=== PATIENT | female | born 1955 | race Caucasian/White ===

== ENCOUNTER 2021-09-12 11:36 | Emergency (ER) | payer BC, SELFPAY ==
--- NOTE | ~2021-09-12 | NM_ITS ---
EXAMINATION: NM pulmonary perfusion DATE: 09/12/2021 15:49 INDICATION: Right chest pain. TECHNIQUE: 5.2 mCi Tc-99m MAA was administered intravenously for perfusion images. Scintigraphic marivel ges of the chest were obtained. COMPARISON: Chest 2 views 09/12/2021 FINDINGS: Perfusion images show no defects. IMPRESSION: 1. Pulmonary embolism absent. Normal perfusion. Reviewed, dictated and finalized at location A. CIATE PROFESSOR OF GEOGRAPHY
--- NOTE | ~2021-09-12 | CT_ITS ---
EXAMINATION: CT abdomen pelvis w con DATE: 09/12/2021 15:24 INDICATION: Abdominal pain TECHNIQUE: Computed tomography (CT) of the abdomen and pelvis was performed with 100 mL Omnipaque-350 intravenous contrast. Automated exposure control and iterative reconstruction technique were employe d. The dose-length product was 387.39 mGy-cm. COMPARISON: None FINDINGS: Lung bases are clear. Heart size is normal. No pericardial or pleural effusion. Small sliding-type hi atal hernia. Cholecystectomy clips at the gallbladder fossa. Diffuse hepatic steatosis with more foca l fat at the ligamentum teres. Spleen, pancreas, bilateral adrenal glands and kidneys are normal. The appendix is not visualized. No pericecal inflammatory change to suggest acute appendicitis. There ar e fluid-filled loops of small bowel as well as fluid throughout the majority the colon consistent wit h diarrhea. No abnormal bowel wall thickening or obstruction. Bladder is normal. The uterus is not id entified and has likely been surgically resected. Postoperative changes in the lumbar and lower thora cic spine with partial vertebroplasty at L3 and vertebral plasties at the remaining levels from L1 th rough L5. Anterior spinal fusion with bone graft cages at L3-L4 through L5-S1 and with anterior plate and screw fixation at L4-L5. Posterior spinal fusion with bilateral vertical julio and pedicle screws extending from T10 through S1 along with bilateral iliac screws. IMPRESSION: 1. Fluid throughout the large and small bowel consistent with nonspecific diarrhea. 2. Small sliding-type hiatal hernia. 3. Diffuse hepatic steatosis. Reviewed, dictated and finalized at location A. EL [employer] ADVISOR IMPRESSION: 1. Fluid throughout the large and small bowel consistent with nonspecific diarr hea. 2. Small sliding-type hiatal hernia. 3. Diffuse hepatic steatosis.
--- NOTE | ~2021-09-12 | XR_ITS ---
EXAMINATION: XR chest 2V DATE: 09/12/2021 15:47 INDICATION: Right upper quadrant abdominal pain. TECHNIQUE: Frontal and lateral views of the chest were obtained. COMPARISON: CT abdomen and pelvis 09/12/2021 FINDINGS: A calcified left lung nodule is consistent with old granulomatous disease. There is no pneu monia, pleural effusion, or pneumothorax. The heart size is normal. Surgical clips in the right upper quadrant are likely from cholecystectomy. There are changes of posterior fusion procedure in thoraco lumbar spine and anterior fusion procedure in lumbar spine. There is a right shoulder arthroplasty. IMPRESSION: 1. No acute cardiopulmonary disease. Reviewed, dictated and finalized at location A. RVISOR ASSEMBLY
[2021-09-12 11:52] VITALS: BP 130/93; PULSE 77; RESP 18; TEMP 36.1; O2SAT 100
[2021-09-12 12:30] LABS: Add Urine Microscopic? YES; Appearance Urine Cloudy (Clear); Bacteria Urine Trace /hpf; Bilirubin Urine Negative (Negative); Color Urine Yellow (Yellow); Glucose Urine UA Negative (Negative); Hyaline Casts Urine 30-49 /lpf; Ketones Urine Negative (Negative); Leukocyte Esterase Ur Trace LEU/UL (Negative); Mucus Urine Rare /lpf; Nitrate Urine Negative (Negative); Protein Urine 2+ mg/dL (Negative); Specific Grav Ur 1.021 (1.001-1.035); Squamous Epithelial Cell Urine Occasional /hpf (Few); Urobilinogen Urine Negative mg/dL (<2.0)
[2021-09-12 12:32] LABS: Blood Urine Negative (Negative)
[2021-09-12 12:33] LABS: Basophils Percent Auto 0.1 % (0.2-1.2); Hematocrit 34.6 % (37.0-47.0); Hemoglobin 11.8 g/dL (12.0-15.0); Immature Granulocyte Absolute 0.13 K/mm3 (0.00-0.031); Immature Granulocyte Percent A 0.8 % (0-0.5); Lymphocytes Absolute Auto 4.64 K/mm3 (0.9-3.2); Mean Corpuscular HGB Conc 34.1 g/dl (32-36); Mean Platelet Volume 9.4 fl (7.4-10.4); Monocytes Absolute Auto 1.3 K/mm3 (0.1-0.6); Neutrophils Absolute Auto 10.5 K/mm3 (1.3-6.7); Neutrophils Percent Auto 63.1 % (45.5-73.1); Platelet Count Result 377 k/mm3 (150-375); Red Blood Count 3.93 M/mm3 (4.2-5.4); Red Cell Distribution Width 12.8 % (11.5-14.5); White Blood Count 16.6 K/mm3 (4.5-10.0)
[2021-09-12 12:47] LABS: Alanine Aminotransferase 17 U/L (4-35); Albumin Level 4.6 g/dL (3.5-5.1); Alkaline Phosphatase 94 U/L (38-126); Anion Gap 9 mmol/L (8-16); Aspartate Amino Transferase 21 U/L (14-36); Bilirubin,Total 0.4 mg/dL (0.2-1.3); Blood Urea Nitrogen 28 mg/dL (7-17); Carbon Dioxide 28 mmol/L (22-30); Chloride 97 mmol/L (98-107); Estimated CRCL calculation 43 ml/min; Estimated Glomerular Filt Rate 50; Glucose 130 mg/dL (65-110); Lipase 53 U/L (23-300); Potassium 4.8 mmol/L (3.4-5.0); Sodium 134 mmol/L (137-145)
[2021-09-12 13:47] VITALS: O2SAT 100
[2021-09-12 13:48] VITALS: BP 155/87; O2SAT 100
--- NOTE | 2021-09-12 14:10 | ED.ABDPAIN ---
HPI - Abdominal Pain General Chief Complaint: Abdominal Pain Stated Complaint: mariajose Valenzuela Time Seen by Provider: 09/12/21 13:44 Source: patient Limitations: no limitations History of Present Illness HPI narrative: Patient is a 66-year-old female complaining of right upper quadrant pain, 9 out of 10, sharp, radiating to right lateral ribs, right flank that started 7 weeks ago after she had a surgery on her back at [facility]. Patient states that she saw her spine surgeon yesterday due to the pain, had an MRI done and was given a steroid injection. Patient denied any chest pain, shortness of breath, nausea, vomiting, diarrhea, urinary symptoms, fever or chills. Related Data Allergies Allergy/AdvReac Type Severity Reaction Status Date / Time levofloxacin Allergy Unknown Verified 06/23/17 14:11 morphine Allergy Unknown Verified 11/19/15 11:56 ciprofloxacin AdvReac Unknown TENDON Verified 11/19/15 11:56 INJURIES AND DAMAGE Review of Systems Review of Systems: All systems reviewed & are unremarkable except as noted in HPI and below Constitutional: Constitutional: Denies body ache(s), Denies chills, Denies excessive sweating, Denies fatigue, Denies fever(s), Denies headache(s), Denies lethargy, Denies malaise, Denies weakness and Denies weight loss Eyes: Eyes: Denies blurry vision, Denies change in vision and Denies loss of vision ENT: Denies dizziness, Denies ear discharge, Denies headache(s), Denies lip swelling, Denies epistaxis, Denies nasal congestion, Denies neck pain, Denies throat swelling and Denies tongue swelling Cardiovascular: Cardiovascular: Denies chest pain, Denies chest pain at rest, Denies chest pain with activity, Denies diaphoresis, Denies rapid heart rate, Denies edema, Denies irregular heart rhythm, Denies lightheadedness, Denies palpitations, Denies dyspnea and Denies dyspnea on exertion Respiratory: Respiratory: Denies chest congestion, Denies cough, Denies hemoptysis, Denies dyspnea and Denies dyspnea on exertion Gastrointestinal: Gastrointestinal: Denies melena, Denies hematochezia, Denies diarrhea, Denies nausea, Denies vomiting and Denies hematemesis Musculoskeletal: Musculoskeletal: Denies abnormal gait, Denies deformity, Denies joint swelling, Denies limited range of motion, Denies neck pain and Denies numbness Neurologic: Denies Abnormal speech present, Denies abnormal gait, Denies confusion, Denies dizziness, Denies headache(s), Denies focal weakness, Denies loss of vision, Denies numbness, Denies Other visual disturbances, Denies Sensory deficit (Neuro) and Denies weakness Psychiatric: Psychiatric: Denies confusion, Denies depression, Denies auditory hallucinations, Denies homicidal ideation and Denies suicidal ideation Endocrine: Endocrine: Denies cold intolerance, Denies excessive sweating, Denies fatigue, Denies heat intolerance and Denies palpitations Hematologic/Lymphatic: Hematologic/Lymphatic: Denies easy bleeding and Denies easy bruising Allergic/Immunologic: Allergic/Immunologic: Denies lip swelling, Denies throat swelling and Denies tongue swelling PMFSH Social History Social History Smoking status: Never smoker Alcohol intake: never Comments Past medical history: Recent back surgery Family history: Hypertension Social history: Non-smoker no EtOH or drug use Exam Const: General: cooperative, healthy appearing, comfortable, no acute distress, well developed, alert and awake; No confusion Orientation/consciousness: oriented to person, oriented to place, oriented to time, patient oriented x3 and No confusion Limitations: no limitations HENMT: Head: normal to inspection, normocephalic and atraumatic Ears: hearing grossly normal bilaterally, TM normal on the right and TM normal on the left General nose exam: Normal external nose present, Normal nares present and No nasal discharge present Face and sinus: normal facial exam Mouth: Yes Normal oral and palata
[2021-09-12 14:44] LABS: D Dimer 2.82 ug/mL (<0.48)
[2021-09-12] MEDS: LACTATED RINGERS 1,000 ML 999 ML IV CONT (15:09)
[2021-09-12] MEDS: HYDROmorphone HCL INJ (*CRX) 1 MG/ML SYR IV PUSH (15:10)
[2021-09-12] MEDS: ONDANSETRON INJ 4 MG/2 ML VIAL IV PUSH (15:10)
[2021-09-12 17:02] VITALS: BP 127/78; PULSE 96; RESP 18; O2SAT 99
[2021-09-12] MEDS: HYDROmorphone HCL INJ (*CRX) 1 MG/ML SYR 0.5 MG IV PUSH (17:02)
== END 2021-09-12 17:19 | disposition home or self-care (01) ==
PROVIDERS: Emergency Medicine; Emergency Provider Emergency Medicine; PCP Family Medicine
DX: N39.0 Urinary tract infection, site not specified (principal); R10.11 Right upper quadrant pain; K44.9 Diaphragmatic hernia without obstruction or gangrene; K76.0 Fatty (change of) liver, not elsewhere classified
CPT/HCPCS: 36415; 71046; 74177; 78580; 80053; 81001; 83690; 85025; 85380; 87086; 87088; 96361; 96374; 96375; 96376; 99284; A9540; J1170; J2405; J7120; Q9967